=== PATIENT | male | born 1960 | race Caucasian/White ===

== ENCOUNTER → 2017-08-10 | Emergency (ER) | payer OTHER ==
[~2017-08-10] VITALS: Ht 167.6 cm; Wt 77.6 kg
[~2017-08-10] MED LIST: ADULT ASPIRIN81 MG PO; AMLODIPINE BESYL5 MG PO; ATORVASTATIN CA10 MG PO; DICLOFENAC SODI50 MG PO; IBUPROFEN800 MG PO; KETO10TA2 PO; MOTRIN600 MG PO; NORVASC 2.5 MG; ORPH100T PO; TAMS0.4C PO; [UNRECOGNIZED DRUG - OTHER]
== END | disposition home or self-care (01) ==
LOC: ER 22:12
DX: M25.561 Pain in right knee (principal); M54.2 Cervicalgia